=== PATIENT | male | born 1960 | race Hispanic/Latino ===

== ENCOUNTER 2019-06-21 05:45 | Day surgery (SDC) | payer OTHER ==
[2019-06-20 11:29] LABS: BASOPHILS % (AUTO) 0.5 % (0.0-5.0); EOSINOPHILS % (AUTO) 3.8 % (0.0-8.0); LYMPHOCYTES % (AUTO) 16.8 % (21.0-51.0); MEAN CORPUSCULAR HEMOGLOBIN 30.5 pg (27.0-33.0); MEAN CORPUSCULAR HGB CONC 33.7 g/dL (32.0-36.0); MEAN CORPUSCULAR VOLUME 90.6 fL (79-99); NEUTROPHILS % (AUTO) 71.9 % (40.0-77.0); NUCLEATED RED BLOOD CELLS 0.1 % (0.0-0.19); PLATELET COUNT (AUTO) 225 K/uL (130-400); RED BLOOD CELL COUNT(AUTO) 4.63 MIL/uL (4.50-6.20); RED CELL DISTRIBUTION WIDTH 14.2 % (11.0-15.5); WHITE BLOOD COUNT (AUTO) 5.5 K/uL (4.8-10.8)
[2019-06-20 11:36] LABS: CREATININE 0.8 mg/dL (0.5-1.5); POTASSIUM 4.5 mmol/L (3.5-5.1)
[2019-06-20 11:38] VITALS: BP 128/79
--- NOTE | 2019-06-20 15:52 | NUR ---
RE: PATIENT ON ASPIRIN AND NARPOXEN SPOKE WITH MÓNICA FROM DR STINSON'S OFFICE AND INFORMED HER THAT PATIENT IS TAKING ASPIRIN AND NAPROXEN DAILY. PER MAURICIO(DR STINSON'S PA) OK TO PROCEED WITH SCHEDULED PROCEDURE. PATIENT NOT TO TAKE ASPIRIN OR NAPROXEN IN AM OF PROCEDURE.
[2019-06-21] VITALS (16 sets, daily range): BP systolic 105–130; BP diastolic 55–88
[~2019-06-21] VITALS: Ht 152.4 cm; Wt 103.4 kg
[~2019-06-21 05:45] MED LIST: ASPI-555 PO; ATOR10 PO; FLUT16H NASAL; GABA-531 PO; LEVO5TAB29 PO; LOSA50TA64 PO; NAPR-1023 PO
[2019-06-21] MEDS ORDERED: LACTATED RINGERS 1000ML 1,000 ML IV ONE ×2 (06:37→06:39)
[2019-06-21] MEDS ORDERED: CEFAZOLIN SODIUM 1 GM VIAL ONE (06:38)
[2019-06-21] MEDS ORDERED: BUPIVACAINE/PF 0.25% 30ML VIAL IJ ONE (07:20)
[2019-06-21] MEDS ORDERED: CEFAZOLIN SODIUM 1 GM VIAL IVP ONE (08:00)
[2019-06-21] MEDS ORDERED: LIDOCAINE PF 2% 5ML ABBOJECT ONE (08:04)
[2019-06-21] MEDS ORDERED: PROPOFOL 10 MG/ML 20ML VIAL IV ONE (08:04)
[2019-06-21] MEDS ORDERED: ONDANSETRON HCL 4 MG/2 ML VIAL ONE (08:04)
[2019-06-21] MEDS ORDERED: DEXAMETHASONE SOD PHOSPHATE 10MG/ML 1ML VIAL ONE (08:04)
[2019-06-21] MEDS ORDERED: ROCURONIUM 10MG/1ML SYR 10 MG/ML ML ONE (08:05)
[2019-06-21] MEDS ORDERED: MIDAZOLAM HCL 1 MG/ML 2ML VIAL ONE (08:05)
[2019-06-21] MEDS ORDERED: FENTANYL CITRATE PF 50 MCG/1 ML 2ML VIAL ONE (08:05)
[2019-06-21] MEDS ORDERED: EPHEDRINE SULFATE 50 MG/ML AMPULE ONE (08:29)
[2019-06-21] MEDS ORDERED: GLYCOPYRROLATE 1 MG/5 ML SYRINGE ONE (08:48)
[2019-06-21] MEDS ORDERED: NEOSTIGMINE 5MG/5ML SYR IV ONE (08:48)
== END 2019-06-21 11:20 | disposition home or self-care (01) ==
LOC: DAH 05:45
PROVIDERS: ATTEND Orthopaedic Surgery
DX: M25.561 Pain in right knee (principal); M22.41 Chondromalacia patellae, right knee; M17.11 Unilateral primary osteoarthritis, right knee; I10 Essential (primary) hypertension; E78.00 Pure hypercholesterolemia, unspecified
CPT/HCPCS: 29879; 36415; 80048; 85025; A4215; A4221; A4222; A4223; A4606 ×2; A4649 ×2; A4663; A4930; A5120; A6223; A6260; J0690; J1100; J2001; J2250; J2405; J2704; J2710; J3010; J3490 ×3; J7120 ×2

== ENCOUNTER 2020-01-24 11:00 | Inpatient (IN) | payer OTHER ==
[~2020-01-24] VITALS: Ht 168.9 cm; Wt 106.0 kg
[~2020-01-24 11:00] MED LIST changes: -ASPI-555 PO; -FLUT16H NASAL; -GABA-531 PO; -NAPR-1023 PO
[2020-01-24 12:22] LABS: BASOPHILS % (AUTO) 0.5 % (0.0-5.0); EOSINOPHILS % (AUTO) 3.4 % (0.0-8.0); HEMATOCRIT 42.3 % (42-54); MEAN CORPUSCULAR HEMOGLOBIN 29.5 pg (27.0-33.0); MEAN CORPUSCULAR HGB CONC 33.1 g/dL (32.0-36.0); MEAN CORPUSCULAR VOLUME 89.1 fL (79-99); MONOCYTES % (AUTO) 7.8 % (3.0-13.0); PLATELET COUNT (AUTO) 247 K/uL (130-400); RED BLOOD CELL COUNT(AUTO) 4.75 MIL/uL (4.50-6.20); RED CELL DISTRIBUTION WIDTH 12.9 % (11.0-15.5); WHITE BLOOD COUNT (AUTO) 6.1 K/uL (4.8-10.8)
[2020-01-24 12:35] LABS: CREATININE 0.9 mg/dL (0.5-1.5); POTASSIUM 4.1 mmol/L (3.5-5.1)
[2020-01-24 12:39] LABS: INR 0.92 (0.85-1.15); PARTIAL THROMBOPLASTIN TIME 26.3 SEC (26.3-35.5)
[2020-01-28 09:03] VITALS: BP 161/85
[2020-01-29] VITALS (23 sets, daily range): BP systolic 130–160; BP diastolic 52–106
[2020-01-29] MEDS ORDERED: LACTATED RINGERS 1000ML 1,000 ML IV ONE (07:00)
[2020-01-29] MEDS: CEFAZOLIN SODIUM 1 GM VIAL ONE ×2 (07:04→10:50)
--- NOTE | 2020-01-29 07:27 | NUR ---
SURGERY RIGHT HIP CLIPPED AND WIPED WITH ARIAS BY ZOLTAN
[2020-01-29] MEDS ORDERED: SUCCINYLCHOLINE CHLORIDE 20 MG/ML 10 ML VIAL ONE (09:04)
[2020-01-29] MEDS ORDERED: LIDOCAINE PF 2% 5ML ABBOJECT ONE (09:04)
[2020-01-29] MEDS ORDERED: PROPOFOL 10 MG/ML 20ML VIAL IV ONE (09:04)
[2020-01-29] MEDS ORDERED: ROCURONIUM 10MG/1ML SYR 10 MG/ML ML ONE ×2 (09:04→12:57)
[2020-01-29] MEDS ORDERED: MIDAZOLAM HCL 1 MG/ML 2ML VIAL ONE (09:04)
[2020-01-29] MEDS ORDERED: TRANEXAMIC ACID 1000MG/10ML ONE (09:23)
[2020-01-29] MEDS ORDERED: SODIUM CHLORIDE 0.9% 10 ML VIAL ONE (10:17)
[2020-01-29] MEDS ORDERED: ROPIVACAINE 0.5% 5MG/ML 30ML IJ ONE (10:18)
[2020-01-29] MEDS ORDERED: FENTANYL CITRATE PF 50 MCG/1 ML 2ML VIAL ONE ×2 (11:00→11:52)
[2020-01-29] MEDS ORDERED: EPHEDRINE SULFATE 50 MG/ML AMPULE ONE (11:42)
[2020-01-29] MEDS ORDERED: VANCOMYCIN HCL 1 GM VIAL ONE (11:52)
[2020-01-29] MEDS ORDERED: GLYCOPYRROLATE 1 MG/5 ML SYRINGE ONE (13:31)
[2020-01-29] MEDS ORDERED: NEOSTIGMINE 5MG/5ML SYR IV ONE (13:31)
[2020-01-29] MEDS ORDERED: KETOROLAC TROMETHAMINE 30MG/ML ONE (13:35)
[2020-01-29] MEDS: SODIUM CHLORIDE 0.9% 1000ML 1,000 ML IV SCH (13:58)
[2020-01-29] MEDS ORDERED: ONDANSETRON HCL 4 MG/2 ML VIAL IVP PRN (14:00)
[2020-01-29] MEDS ORDERED: POTASSIUM CHLORIDE 20MEQ/100ML 100 ML IV PRN (14:00)
[2020-01-29] MEDS ORDERED: KETOROLAC TROMETHAMINE 15MG/ML IV PRN (14:00)
[2020-01-29] MEDS: ACETAMINOPHEN EXTRA STRENGTH 500 MG TABLET PO SCH ×2 (14:00→22:00)
[2020-01-29] MEDS ORDERED: LIDOCAINE HCL-MPF 1% 2ML VIAL IV PRN (14:00)
[2020-01-29] MEDS ORDERED: POTASSIUM CHLORIDE 10% ELIXIR 20 MEQ/15 ML UDCUP PO PRN (14:00)
[2020-01-29] MEDS ORDERED: POTASSIUM CHLORIDE 20 MEQ ERTAB PO PRN (14:00)
[2020-01-29] MEDS ORDERED: OXYCODONE HCL 5 MG TAB PO PRN (14:00)
[2020-01-29] MEDS ORDERED: TRAMADOL HCL 50 MG TABLET PO PRN (14:00)
[2020-01-29] MEDS ORDERED: MEPERIDINE-PF 25 MG/ML SYG ONE (14:27)
--- NOTE | 2020-01-29 15:20 | NUR ---
POST OP PT ARRIVED TO FLOOR FROM PACU, PT IS AWAKE, ALERT AND ORIENTED X3, VOICES NO COMPLAINTS OF PAIN, RIGHT HIP ROCHELLE DRESSING D/I , FLASHING GREEN,PEDAL PULSES PRESENT, GOOD CMS, SCDS IN PLACE, ORIENTED TO ROOM, AT BEDSIDE, CALL LIGHT WITHIN REACH
[2020-01-29] MEDS: CEFAZOLIN SODIUM 1 GM VIAL IVP SCH (18:08)
[2020-01-29] MEDS: FAMOTIDINE 20MG TAB 20 MG TAB PO SCH (19:46)
[2020-01-29] MEDS: CELECOXIB 200 MG CAP PO SCH (19:46)
[2020-01-29] MEDS: ASPIRIN 81 MG EC TAB PO SCH (19:46)
[2020-01-29] MEDS: OXYCODONE HCL 5 MG TAB PO PRN (20:02)
[2020-01-29] MEDS: MORPHINE SULFATE 4 MG/1ML SYG IVP PRN (21:07)
[2020-01-30] VITALS: BP 121/63
[2020-01-30] MEDS: SODIUM CHLORIDE 0.9% 1000ML 1,000 ML IV SCH (00:43)
[2020-01-30] MEDS: MORPHINE SULFATE 4 MG/1ML SYG IVP PRN (00:53)
[2020-01-30] MEDS: CEFAZOLIN SODIUM 1 GM VIAL IVP SCH (02:40)
[2020-01-30] MEDS: OXYCODONE HCL 5 MG TAB PO PRN (02:41)
[2020-01-30] MEDS: ACETAMINOPHEN EXTRA STRENGTH 500 MG TABLET PO SCH ×2 (02:41→14:19)
[2020-01-30 04:00] VITALS: BP 130/61
[2020-01-30 05:51] LABS: HEMATOCRIT 33.4 % (42-54); MEAN CORPUSCULAR HEMOGLOBIN 29.4 pg (27.0-33.0); MEAN CORPUSCULAR HGB CONC 32.9 g/dL (32.0-36.0); MEAN CORPUSCULAR VOLUME 89.3 fL (79-99); RED BLOOD CELL COUNT(AUTO) 3.74 MIL/uL (4.50-6.20); RED CELL DISTRIBUTION WIDTH 13.2 % (11.0-15.5); WHITE BLOOD COUNT (AUTO) 6.4 K/uL (4.8-10.8)
[2020-01-30 06:09] LABS: CREATININE 1.1 mg/dL (0.5-1.5); POTASSIUM 4.2 mmol/L (3.5-5.1)
[2020-01-30 08:34] VITALS: BP 125/56
[2020-01-30] MEDS ORDERED: LOSARTAN 50 MG TABLET PO SCH (09:00)
[2020-01-30] MEDS ORDERED: POLYETHYLENE GLYCOL 3350 17 GM POWD.PACK PO SCH (09:00)
[2020-01-30] MEDS: CELECOXIB 200 MG CAP PO SCH (09:15)
[2020-01-30] MEDS: ASPIRIN 81 MG EC TAB PO SCH (09:15)
[2020-01-30] MEDS: FAMOTIDINE 20MG TAB 20 MG TAB PO SCH (09:15)
[2020-01-30 11:51] VITALS: BP 125/60
--- NOTE | 2020-01-30 15:55 | NUR ---
DC PLAN VISITED WITH PATIENT. PATIENT LIVES WITH SPOUSE. PER NURSE PATIENT NOT SURE REGARDING HOME HEALTH. I CALLED MULTIPLE TIMES THEY SAID THEIR PHONES NOT WORKING AND WOULD HANG UP. COULD NOT CONFIRM INFORMATION. PER NURSE [facility]MENT[facility] STUDIES DEPARTMENT CHAIR FOR DR. CHICAS CAME BY AND SPOKE TO PATIENT. REMINDED PATIENT THEY HAD ALREADY MADE ARRANGEMENTS FOR EQUIPMENT AND PHYSICAL THERAPY. HE ALREADY HAS AN APPOINTMENT TIME. Addendum: 01/30/20 at 1558 by RODERICK CLAROS RN CM Amended: Links added.
[2020-02-01] MEDS ORDERED: BISACODYL 10 MG SUPP.RECT RC PRN (14:00)
== END 2020-01-30 16:15 | disposition home health service (06) | DRG 470 ==
LOC: EDSTATUS 11:00 → DAHIP 01-29 06:37 → 3DH 01-29 16:31
PROVIDERS: ADMIT Orthopaedic Surgery; ATTEND Orthopaedic Surgery
PROC: 0SR90JZ Replacement of Right Hip Joint with Synthetic Substitute, Open Approach (ICD-10-PCS; principal; 2020-01-29 10:39)
PROC: 3E0T3BZ Introduction of Anesthetic Agent into Peripheral Nerves and Plexi, Percutaneous Approach (ICD-10-PCS; 2020-01-29 10:39)
DX: M16.11 Unilateral primary osteoarthritis, right hip (principal); M21.70 Unequal limb length (acquired), unspecified site; Z20.828 Contact with and (suspected) exposure to other viral communicable diseases; I10 Essential (primary) hypertension; K21.9 Gastro-esophageal reflux disease without esophagitis; E66.9 Obesity, unspecified; Z68.37 Body mass index [BMI] 37.0-37.9, adult
CPT/HCPCS: 36415; 73503; 80048; 85025; 85027; 85610; 85730; 86850; 86900; 86901; 87641; 97039; A4606; G0378; J0330; J0690; J1885; J2001; J2175; J2250; J2270; J2704; J2710; J2795; J3010; J3370; J3490; J7030; J7120; U0003

== ENCOUNTER → 2022-09-01 | Outpatient (CLI) | payer BC, OTHER ==
[~2022-09-01] VITALS: Ht 172.7 cm; Wt 112.7 kg
[2022-09-01 13:17] LABS: BASOPHILS % (AUTO) 0.5 % (0.0-5.0); HEMATOCRIT 43.7 % (42-54); LYMPHOCYTES % (AUTO) 17.6 % (21.0-51.0); MEAN CORPUSCULAR HEMOGLOBIN 29.3 pg (27.0-33.0); MEAN CORPUSCULAR HGB CONC 33.6 g/dL (32.0-36.0); MEAN CORPUSCULAR VOLUME 87.2 fL (79-99); MONOCYTES % (AUTO) 5.3 % (3.0-13.0); PLATELET COUNT (AUTO) 270 K/uL (130-400); RED BLOOD CELL COUNT(AUTO) 5.01 MIL/uL (4.50-6.20); RED CELL DISTRIBUTION WIDTH 12.8 % (11.0-15.5); WHITE BLOOD COUNT (AUTO) 6.4 K/uL (4.8-10.8)
[2022-09-01 13:19] VITALS: BP 177/95
[2022-09-01 13:24] LABS: CREATININE 0.9 mg/dL (0.5-1.5); POTASSIUM 3.9 mmol/L (3.5-5.1)
[2022-09-01 13:27] LABS: PROTHROMBIN TIME 10.9 SEC (9.6-11.6)
[2022-09-01 13:28] LABS: PARTIAL THROMBOPLASTIN TIME 27.6 SEC (26.3-35.5)
== END | disposition home or self-care (01) ==
LOC: DAH 10:00 → EDSTATUS 09-02 10:00
PROVIDERS: ATTEND Orthopaedic Surgery
DX: M17.12 Unilateral primary osteoarthritis, left knee (principal); U07.1 COVID-19; Z79.01 Long term (current) use of anticoagulants; Z79.899 Other long term (current) drug therapy; Z53.8 Procedure and treatment not carried out for other reasons
CPT/HCPCS: 87426; 87641; 80048; 85025; 85730; 85610; 36415; A6260

== ENCOUNTER 2022-09-30 08:00 | Observation (INO) | payer BC ==
[2022-09-28 10:43] LABS: BASOPHILS % (AUTO) 0.7 % (0.0-5.0); EOSINOPHILS % (AUTO) 3.9 % (0.0-8.0); HEMATOCRIT 42.1 % (42-54); LYMPHOCYTES % (AUTO) 19.6 % (21.0-51.0); MEAN CORPUSCULAR HEMOGLOBIN 29.4 pg (27.0-33.0); MEAN CORPUSCULAR HGB CONC 32.5 g/dL (32.0-36.0); MEAN CORPUSCULAR VOLUME 90.3 fL (79-99); MONOCYTES % (AUTO) 7.5 % (3.0-13.0); NEUTROPHILS % (AUTO) 67.9 % (40.0-77.0); PLATELET COUNT (AUTO) 242 K/uL (130-400); RED BLOOD CELL COUNT(AUTO) 4.66 MIL/uL (4.50-6.20); RED CELL DISTRIBUTION WIDTH 12.7 % (11.0-15.5); WHITE BLOOD COUNT (AUTO) 5.7 K/uL (4.8-10.8)
[2022-09-28 10:45] VITALS: BP 148/81
[2022-09-28 10:55] LABS: CREATININE 0.9 mg/dL (0.5-1.5); POTASSIUM 4.4 mmol/L (3.5-5.1)
[2022-09-28 11:03] LABS: INR 0.98 (0.85-1.15); PROTHROMBIN TIME 10.7 SEC (9.6-11.6)
[2022-09-28 11:04] LABS: PARTIAL THROMBOPLASTIN TIME 27.5 SEC (26.3-35.5)
[2022-09-30] VITALS (30 sets, daily range): BP systolic 129–219; BP diastolic 59–124
[~2022-09-30] VITALS: Ht 170.2 cm; Wt 116.1 kg
[~2022-09-30 08:00] MED LIST changes: +LACTATED RINGERS 1000ML 1,000 ML IV SCH; -LOSA50TA64 PO
[2022-09-30] MEDS ORDERED: TRANEXAMIC ACID 1000MG/10ML ONE (08:22)
[2022-09-30] MEDS: CEFAZOLIN SODIUM 2 GM VIAL IVPB PRN ×2 (08:53→11:00)
[2022-09-30] MEDS ORDERED: LIDOCAINE PF 100MG/5ML (2%) SYRINGE 5ML ONE (09:39)
[2022-09-30] MEDS ORDERED: PROPOFOL 10 MG/ML 20ML VIAL IV ONE (09:39)
[2022-09-30] MEDS ORDERED: SUCCINYLCHOLINE CHLORIDE 20 MG/ML 10 ML VIAL ONE (09:39)
[2022-09-30] MEDS ORDERED: MIDAZOLAM HCL 1 MG/ML 2ML VIAL ONE ×2 (09:40→13:05)
[2022-09-30] MEDS ORDERED: GLYCOPYRROLATE 1 MG/5 ML SYRINGE ONE (09:40)
[2022-09-30] MEDS ORDERED: NEOSTIGMINE 5MG/5ML SYR IV ONE (09:40)
[2022-09-30] MEDS ORDERED: DEXAMETHASONE SOD PHOSPHATE 10MG/ML 1ML VIAL ONE (09:40)
[2022-09-30] MEDS ORDERED: BUPIVACAINE/PF 0.5% 30ML VIAL ONE (09:40)
[2022-09-30] MEDS ORDERED: ROCURONIUM 10MG/1ML SYR 10 MG/ML ML ONE (09:41)
[2022-09-30] MEDS ORDERED: FENTANYL CITRATE PF 50 MCG/1 ML 2ML VIAL ONE ×4 (09:41→12:04)
[2022-09-30] MEDS ORDERED: ONDANSETRON 4MG INJ ONE (09:41)
[2022-09-30] MEDS ORDERED: ESMOLOL HCL 10 MG/ML 10 ML VIAL ONE (11:27)
[2022-09-30] MEDS ORDERED: MEPERIDINE-PF 25 MG/ML SYG ONE ×3 (12:52→14:42)
[2022-09-30] MEDS ORDERED: KCL 20 MEQ ERTAB PO PRN (13:00)
[2022-09-30] MEDS ORDERED: ONDANSETRON 4MG INJ IVP PRN (13:00)
[2022-09-30] MEDS ORDERED: HYDROCODONE/ACETAMINOPHEN 10/325 MG TAB PO PRN (13:00)
[2022-09-30] MEDS ORDERED: FERROUS FUMARATE 324 MG TABLET PO PRN (13:00)
[2022-09-30] MEDS ORDERED: LIDOCAINE HCL-MPF 1% 2ML VIAL IV PRN (13:00)
[2022-09-30] MEDS ORDERED: HYDROCODONE/ACETAMINOPHEN 5/325 MG TAB PO PRN (13:00)
[2022-09-30] MEDS ORDERED: MORPHINE 4 MG SYG IVP PRN (13:00)
[2022-09-30] MEDS ORDERED: POTASSIUM CHLORIDE 20MEQ/100ML 100 ML IV PRN (13:00)
[2022-09-30] MEDS ORDERED: POTASSIUM CHLORIDE 10% ELIXIR 20 MEQ/15 ML UDCUP PO PRN (13:00)
[2022-09-30] MEDS: ACETAMINOPHEN 1,000 MG/100 ML VIAL IV SCH ×2 (13:23→19:55)
[2022-09-30] MEDS ORDERED: LABETALOL 20MG SYG IV ONE (13:41)
[2022-09-30] MEDS: IBUPROFEN 800MG + NS 250ML IV SCH (17:49)
[2022-09-30] MEDS: 0.9%NACL 1000ML 1,000 ML IV SCH ×2 (17:49→23:00)
[2022-09-30] MEDS: CEFAZOLIN SODIUM 1 GM VIAL IVPB SCH (18:39)
[2022-09-30] MEDS: FAMOTIDINE 20MG TAB PO SCH (20:01)
[2022-09-30] MEDS: ASPIRIN 81 MG EC TAB PO SCH (20:01)
[2022-09-30] MEDS ORDERED: CETIRIZINE HCL 5 MG TABLET PO SCH (21:00)
[2022-10-01] VITALS: BP 155/58
[2022-10-01] MEDS: ACETAMINOPHEN 1,000 MG/100 ML VIAL IV SCH (01:56)
[2022-10-01] MEDS: IBUPROFEN 800MG + NS 250ML IV SCH ×2 (03:02→09:18)
[2022-10-01 04:00] VITALS: BP 130/76
[2022-10-01] MEDS ORDERED: CEFAZOLIN SODIUM 2 GM VIAL ONE (05:17)
[2022-10-01] MEDS: CEFAZOLIN SODIUM 1 GM VIAL IVPB SCH (05:18)
[2022-10-01 05:34] LABS: HEMATOCRIT 34.2 % (42-54); MEAN CORPUSCULAR HEMOGLOBIN 29.8 pg (27.0-33.0); MEAN CORPUSCULAR HGB CONC 33.9 g/dL (32.0-36.0); MEAN CORPUSCULAR VOLUME 87.9 fL (79-99); RED BLOOD CELL COUNT(AUTO) 3.89 MIL/uL (4.50-6.20); RED CELL DISTRIBUTION WIDTH 12.9 % (11.0-15.5); WHITE BLOOD COUNT (AUTO) 11.1 K/uL (4.8-10.8)
[2022-10-01 05:52] LABS: CREATININE 1.1 mg/dL (0.5-1.5); POTASSIUM 4.2 mmol/L (3.5-5.1)
[2022-10-01 08:00] VITALS: BP 136/79
[2022-10-01] MEDS ORDERED: POLYETHYLENE GLYCOL 3350 17 GM POWD.PACK PO SCH (09:00)
[2022-10-01] MEDS: 0.9%NACL 1000ML 1,000 ML IV SCH (09:00)
[2022-10-01] MEDS: FAMOTIDINE 20MG TAB PO SCH (09:17)
[2022-10-01] MEDS: ASPIRIN 81 MG EC TAB PO SCH (09:17)
[2022-10-01 11:50] VITALS: BP 130/73
[2022-10-03] MEDS ORDERED: BISACODYL 10 MG SUPP.RECT RC PRN (13:00)
== END 2022-10-01 14:30 | disposition home or self-care (01) ==
LOC: DAH 08:00 → DAHIP 08:01 → 3BH 16:00
PROVIDERS: ADMIT Orthopaedic Surgery; ATTEND Orthopaedic Surgery
DX: M17.12 Unilateral primary osteoarthritis, left knee (principal); Z20.822 Contact with and (suspected) exposure to COVID-19; I10 Essential (primary) hypertension; M25.562 Pain in left knee; E66.01 Morbid (severe) obesity due to excess calories; Z79.82 Long term (current) use of aspirin; Z79.899 Other long term (current) drug therapy; Z98.890 Other specified postprocedural states; Z68.41 Body mass index [BMI] 40.0-44.9, adult
CPT/HCPCS: 27447; S2900; 36415; 80048; 85025; 85027; 85610; 85730; 87426; 96365; 96366; 96367; 96368; 96375; 97039; G0378; J0330; J0690; J1100; J1741; J2001; J2175; J2250; J2270; J2405; J2704; J2710; J3010; J3490; J7030; J7120